=== PATIENT | female | born 1965 | race Caucasian/White ===

== ENCOUNTER → 2016-07-17 | Outpatient (CLI) | payer BC ==
[~2016-07-17] MED LIST: ETONMIS VAGRING; MULT-506 PO
--- NOTE | 2016-07-17 12:46 | MAMMOGRAPHY REPORT ---
UNILATERAL RIGHT DIGITAL DIAGNOSTIC MAMMOGRAM TOMOSYNTHESIS WITH CAD AND TARGETED RIGHT ULTRASOUND: 07/17/2016 CLINICAL HISTORY: Six-month follow-up of right breast asymmetry. TECHNIQUE: Breast tomosynthesis in addition to standard 2D mammography was performed. Current study was also evaluated with a Computer Aided Detection (CAD) system. Right CC and MLO 2-D and tomosynt hesis images were obtained. COMPARISON: Comparison is made to exams dated: 01/17/2016 ultrasound, 01/17/2016 mammogram, 01/11/20 16 mammogram, 01/05/2015 mammogram, 07/22/2013 mammogram, and 07/16/2012 mammogram - [facility]. BREAST COMPOSITION: The tissue of the right breast is heterogeneously dense, which may obscure smal l masses. FINDINGS: The previously described asymmetry seen within the right superior breast appears similar to prior exams and has the appearance of normal fibroglandular tissue on the tomosynthesis images. Findings are benign and compatible with normal fibroglandular tissue. Incidentally noted in the rig ht upper outer quadrant, best seen on the tomosynthesis images, is a lobulated oval 9 mm mass which was not clearly evident on prior exams. The remainder of the right breast is stable compared to yvan or exams, without suspicious masses, calcifications, or areas of architectural distortion noted. Targeted ultrasound was performed of the right upper outer quadrant in the region of the mammographi c mass. In the right breast at 10:00, 2 cm from the nipple, there is an oval anechoic circumscribed mass with a thin internal septation, measuring 4 x 4 x 2 mm, consistent with a benign cyst cluster. In the right breast at 10:00, 2 cm from the nipple, there is an oval circumscribed 9 x 4 x 7 mm ma ss, which is predominately anechoic and does contain a thin internal septation. However, there is a focal isoechoic region which could represent proteinaceous debris versus a solid component. This l ikely corresponds with the mammographic mass and is indeterminant. Recommend ultrasound guided core needle biopsy for further evaluation. In the right breast at 9:00, 3 cm from the nipple, there is an oval anechoic circumscribed 4 x 3 mm mass, consistent with a benign simple cyst. IMPRESSION: ACR BI-RADS CATEGORY 4A: LOW SUSPICION FOR MALIGNANCY, TARGETED ULTRASOUND ACR BI-RADS CATEGORY 4A: LOW SUSPICION FOR MALIGNANCY 1. The previously described right superior breast asymmetry is benign and compatible with normal fi broglandular tissue. 2. Incidental 9 mm mass in the right breast at 10:00, which may represent a complicated cyst althou gh a mixed cystic and solid mass is not excluded. Recommend ultrasound guided core needle biopsy fo r further evaluation. A phone call was made to the physician's office to confirm faxed results were received. The patient has been verbally notified of the results. She tentatively scheduled the biopsy before leaving the department. Approximately 10% of breast cancers are not detected with mammography. A negative mammographic repor t should not delay biopsy if a clinically suggestive mass is present. Antonietta Huertas M.D. ah/:07/17/2016 08:37:55 Communications Advisor: Tj Black RT(R)(M), [facility] letter sent: Abnormal 4/5 BI-RADS Code: ACR BI-RADS Category 4A: Low Suspicion For Malignancy Ultrasound BI-RADS: ACR BI-RADS Category 4A: Low Suspicion For Malignancy
== END | disposition home or self-care (01) ==
LOC: C.MAMM 07:55
PROVIDERS: ATTEND Obstetrics & Gynecology
DX: N64.89 Other specified disorders of breast (principal); N63 Unspecified lump in breast

== ENCOUNTER → 2016-07-22 | Outpatient (CLI) | payer BC ==
--- NOTE | 2016-07-22 13:21 | Discharge Instructions ---
Discharge Instructions Procedure Procedure Date: Jul 22, 2016. Reason for visit: Right Mass. Discharge Discharge Date: Jul 22, 2016. Discharge Diagnosis: post right breast ultrasound guided core biopsy Medications Restart Stopped Medication(s): May restart Aspirin tonight Instructions Activity Recommendations: Additional Limitations (see below) Return to School/Work: no limitations Recommended Home Diet: No Limitations Provider Instructions: ACTIVITY RECOMMENDATIONS: * No lifting, pushing, pulling or exercising the affected side for three days. RETURN TO SCHOOL/WORK: * You may return to work/school after the procedure, but do not perform any strenuous activities for 24 to 48 hours. MEDICATIONS: * Tylenol (two 325 mg) every four to six hours if needed for mild pain (if not allergic to Tylenol). DIET: * Resume previous diet. SPECIAL CARE INSTRUCTIONS: * Keep biopsy site dry for 24 hours. May shower after 24 hours, but do not soak (bathe) incision. * May remove Tegaderm (plastic patch) tomorrow AFTER showering. * Leave the steri-strips on for one week. Allow the steri-strips to fall off by themselves. If not off after one week, you may remove them. You may place a Bandaid crosswise over the strips, if desired. * Apply ice 10 minutes on and 10 minutes off as needed. * Wear a bra at bedtime to sleep more comfortably for 2-3 days. * Your referring physician should have the results after approximately 5 to 7 business days. * Call for unusual bleeding, fever, drainage, etc or if you have any questions call [phone] during normal business hours or after hours call Dr Beach, . FOLLOW UP VISIT: Follow-up with Referring Physician as scheduled. Allergies Coded Allergies: Penicillins (Verified Allergy, Unknown, SOB AND THROAT EDEMA, 12/19/11) Azithromycin (Unverified Allergy, DIFF BREATHING, 05/12/09) Ronny Bazzi Recommendations: Call your doctor if: * Temperature above 101 degrees * Pain not relieved by pain medicine ordered * There is increased drainage or redness from any incision * You have any unanswered questions or concerns. Your Doctors Instructions noted above were prepared by provider Vivian Beach. Patient Signature Section: Patient Instructions Signature Page Leola Rice Patient (or Guardian) Signature/Date: I have read and understand the instructions given to me by my caregivers. Caregiver/RN/Doctor Signature/Date: The above-named patient and/or guardian has received patient instructions on this date. + Original Patient Signature Page (only) stays with chart. Please make copy for patient.
--- NOTE | 2016-07-22 15:14 | MAMMOGRAPHY REPORT ---
ULTRASOUND GUIDED BIOPSY RIGHT BREAST: 07/22/2016 CLINICAL HISTORY: Indeterminate mixed solid and cystic mass versus intracystic mass in the 10:00 rig ht breast. Patient presented for ultrasound-guided core needle biopsy. COMPARISON: Comparison is made to exams dated: 07/17/2016 mammogram, 07/17/2016 ultrasound, 6 ultrasound, 01/17/2016 mammogram, 01/11/2016 mammogram, and 01/05/2015 mammogram - [facility]. PATIENT CONSENT: The procedure, risks and benefits were discussed with the patient and informed writ ten consent was obtained. Specific risks to this procedure include: bleeding, infection, puncture of adjacent structure, nontarget biopsy, middle allergy, sampling error and medication reaction. PROCEDURE DESCRIPTION: A time out was performed and the right breast was agreed as the site of biops y. The skin was prepped and draped in the usual sterile fashion. The mixed solid and cystic versus i ntracystic mass in the 10:00 right breast was chosen as the target for biopsy. Subcutaneous and intr aparenchymal 1% buffered lidocaine was administered as local anesthesia. A skin incision was made. Through the incision, 5 samples were taken with a 14 gauge Achieve biopsy device. The cystic compon ent of the mass decreased in size after sampling. A metallic marker was placed at the biopsy site. Hemostasis was achieved after manual compression. The patient tolerated the procedure well and there was no immediate complication. The samples were sent to pathology in appropriately labeled contain er. Postprocedure right CC and ML tomosynthesis images were obtained. Based on the CC view, the metalli c biopsy marker aligns with a nodular asymmetry seen mammographically. On the MLO view the biopsy m arker is slightly inferior to the original asymmetry seen on the 01/11/2016 mammogram. No significa nt postbiopsy hematoma is identified. COMPARISON: Comparison is made to exams dated: 07/17/2016 mammogram, 07/17/2016 ultrasound, 6 ultrasound, 01/17/2016 mammogram, 01/11/2016 mammogram, and 01/05/2015 mammogram - [facility]. An ultrasound guided biopsy using real-time ultrasound was performed for the abnormality located in the right breast at 10 o'clock middle depth. The skin was prepped in the usual manner. A biopsy ne edle was placed adjacent to the abnormality under ultrasound guidance. Once the needle was document ed to be in the correct location, a specimen was obtained using an automated biopsy gun. The specim en was sent to the laboratory for pathological analysis. IMPRESSION: ULTRASOUND GUIDED BIOPSY Status post ultrasound guided core needle biopsy of an indeterminate solid and cystic versus intracy stic mass in the 10:00 right breast, with biopsy marker placed at the site. The patient will receive notification of the biopsy results from her referring physician. Vivian Beach M.D. ay/:07/22/2016 14:54:00 Voice Professor: Zulma Patel, [facility]
--- NOTE | 2016-07-22 15:17 | MAMMOGRAPHY REPORT ---
UNILATERAL RIGHT DIGITAL DIAGNOSTIC MAMMOGRAM TOMOSYNTHESIS: 07/22/2016 CLINICAL HISTORY: Status post ultrasound-guided core needle biopsy of an indeterminate solid and cys tic mass in the 10:00 right breast. Please refer to the report from right breast ultrasound guided core biopsy performed at the same nico e for full detail. IMPRESSION: POST PROCEDURE IMAGING FOR MARKER PLACEMENT Please refer to the report from right breast ultrasound guided core biopsy performed at the same nico e for full detail. Approximately 10% of breast cancers are not detected with mammography. A negative mammographic repor t should not delay biopsy if a clinically suggestive mass is present. Vivian Beach M.D. ay/:07/22/2016 13:40:40 Manufacturing Engineer Automotive: Zulma Patel, [facility] BI-RADS Code: Post Procedure Imaging For Marker Placement
== END | disposition home or self-care (01) ==
LOC: C.MAMM 12:17
PROVIDERS: ATTEND Obstetrics & Gynecology
DX: N63 Unspecified lump in breast (principal); N60.11 Diffuse cystic mastopathy of right breast

== ENCOUNTER → 2017-01-14 | Outpatient (CLI) | payer BC ==
--- NOTE | 2017-01-14 14:23 | MAMMOGRAPHY REPORT ---
BILATERAL DIGITAL SCREENING MAMMOGRAM TOMOSYNTHESIS WITH CAD: 01/14/2017 CLINICAL HISTORY: Routine screening. Patient has no complaints. TECHNIQUE: Breast tomosynthesis in addition to standard 2D mammography was performed. Current study was also evaluated with a Computer Aided Detection (CAD) system. COMPARISON: Comparison is made to exams dated: 07/22/2016 mammogram, 07/22/2016 ultrasound biopsy, 07/06 mammogram, 07/17/2016 ultrasound, 01/17/2016 mammogram, and 01/11/2016 mammogram - [facility]. BREAST COMPOSITION: The tissue of both breasts is heterogeneously dense, which may obscure small mas ses. FINDINGS: There is a stable ribbon-shaped biopsy marker clip in the upper outer quadrant of the right breast. No new suspicious mass, architectural distortion or cluster of microcalcifications is seen. IMPRESSION: ACR BI-RADS CATEGORY 1: NEGATIVE There is no mammographic evidence of malignancy. A 1 year screening mammogram is recommended. The pa tient will receive written notification of the results. Approximately 10% of breast cancers are not detected with mammography. A negative mammographic report should not delay biopsy if a clinically suggestive mass is present. Vivian Beach M.D. ay/:01/14/2017 08:30:17 Traffic Control Technician: Zulma Patel, [facility] letter sent: Normal 1/2 BI-RADS Code: ACR BI-RADS Category 1: Negative
== END | disposition home or self-care (01) ==
LOC: C.MAMM 07:10
PROVIDERS: ATTEND Obstetrics & Gynecology
DX: Z12.31 Encounter for screening mammogram for malignant neoplasm of breast (principal)

== ENCOUNTER → 2017-04-22 | Outpatient (CLI) | payer OTHER | END | disposition home or self-care (01) | LOC: C.PAPS 11:11 | PROVIDERS: ATTEND Obstetrics & Gynecology | DX: R87.612 Low grade squamous intraepithelial lesion on cytologic smear of cervix (LGSIL) (principal); Z97.5 Presence of (intrauterine) contraceptive device ==

== ENCOUNTER 2018-05-01 07:05 | Observation (INO) ==
--- NOTE | 2018-05-01 07:18 | CT Scan Report ---
CT head/brain wo con CLINICAL HISTORY: Change in neurological status. Possible acute stroke. COMPARISON STUDY: 11/02/2008 TECHNIQUE: Axial CT of the brain is performed from the vertex to the skull base. IV contrast was not administered for this examination. A dose lowering technique was utilized adhering to the principles of ALARA. CT DOSE: 537.48 mGy.cm FINDINGS: No intra or extra-axial mass lesions are visualized. There is no CT evidence of acute cortical infarc tion. There is no evidence of midline shift. There is no acute hemorrhage. No calvarial fractures ar e visualized. There is no evidence of pathologic ventricular dilatation. There is no evidence of acute sinusitis IMPRESSION: No acute intracranial findings Electronically signed by: Charli Reyes M.D. 05/01/2018 7:17 AM
[2018-05-01 07:31] LABS: Basophils # (auto) 0.05 K/uL (0-0.2); Basophils % (auto) 0.8 %; Eosinophils # (auto) 0.19 K/uL (0-0.5); Eosinophils % (auto) 2.9 %; Hematocrit (blood only) 47.3 % (37-47); Hemoglobin 16.4 g/dL (12.0-16.0); Immature Granulocytes # (auto) 0.01 K/uL (0.00-0.02); Immature Granulocytes % (auto) 0.2 %; Lymphocytes # (auto) 2.01 K/uL (1.2-3.4); Mean Corpuscular Hgb Conc 34.7 g/dL (32-36); Mean Corpuscular Volume 88.2 fL (80-100); Mean Platelet Volume 9.6 fL (7.4-10.4); Monocytes # (auto) 0.52 K/uL (0.11-0.59); Neutrophils % (auto) 57.1 %; Platelet Count 285 K/uL (130-400); RDW Coefficient of Variation 12.7 % (11.5-14.5); RDW Standard Deviation 40.9 fL (36.4-46.3); Red Blood Count 5.36 M/uL (4.2-5.4); White Blood Count 6.48 K/uL (4.8-10.8)
--- NOTE | 2018-05-01 07:41 | XRay Report ---
XR chest 1V portable CLINICAL HISTORY: weakness COMPARISON STUDY: Chest CT dated 03/27/2012 FINDINGS: The cardiac and mediastinal contours are normal. There is no evidence of focal pulmonary co nsolidation. There is no evidence of failure. No pleural effusions are visualized.[ IMPRESSION: No active disease in the chest. Electronically signed by: Charli Reyes M.D. 05/01/2018 7:40 AM
[2018-05-01 07:47] LABS: Albumin Level 3.5 gm/dl (3.4-5.0); BUN Creatinine Ratio 25.2 (10-20); Calcium 8.4 mg/dl (8.5-10.1); Creatinine Clr Calc Pharmacy 63.1 ml/min; Est GFR (African American) 84.6; Potassium 3.7 mmol/L (3.5-5.1)
[2018-05-01 07:58] LABS: Albumin Globulin Ratio 0.9 (0.9-2); Bilirubin,Total 0.4 mg/dl (0.2-1); Globulin 3.8 gm/dl (2.5-4.0); Total Protein 7.3 gm/dl (6.4-8.2)
--- NOTE | 2018-05-01 08:36 | Emergency Department Note ---
Entered by Rochelle Oleary acting as a scribe for History of Present Illness General Chief complaint: Confusion Stated complaint: DISORIENTATION Time Seen by Provider: 05/01/18 07:10 Source: patient Mode of arrival: ambulatory Limitations: no limitations History of Present Illness Provider complaint: altered mental status Onset (ago): hour(s) (1) Location: head Pain Consistency: + other (episode) Quality: + other (altered mental status) Associated symptoms: + other (Associated symptoms: confusion. Denies: slurred speech, difficulty walking, differences in facial features, recent illness, cold , cough, chest pain, trouble breathing, abdominal pain. ) The patient is a 52 year old woman who presents to the Emergency Room with complaints of an episode of altered mental status beginning about 1 hour ago. She reports I am confused and is unsure how long she has been confused. Her reports he saw the patient 1 hour ago standing and staring at the kitchen cabinet. The patient states she does not remember staring at the cabinet and does not remember her driving her to the ED. The denies any slurred speech, difficulty walking, or differences in her facial features. The patient denies recent illness, cold, cough, chest pain, trouble breathing, or abdominal pain. Home Medications Home Medications Medication Instructions Recorded Confirmed Type duloxetine 20 mg PO BID 05/01/18 05/01/18 History etonogestrel-ethinyl estradiol 1 dose VAGINAL DAILY 05/01/18 05/01/18 History [NuvaRing] lisdexamfetamine [Vyvanse] 20 mg PO QAM 05/01/18 05/01/18 History multivitamin 1 cap PO DAILY 05/01/18 05/01/18 History Allergies Allergy/AdvReac Type Severity Reaction Status Date / Time mivacurium Allergy Unknown DIFF Unverified 05/01/18 08:26 BREATHING Penicillins Allergy Unknown SOB AND Verified 05/01/18 08:26 THROAT EDEMA Past Med/Surg History Medical History Migraine (Chronic) Social History Feels Safe at Home: Yes Smoking Status: Never smoker Review of Systems See HPI for pertinent positives & negatives. and A total of 10 systems reviewed and were otherwise negative Physical Exam Vital Signs Vital Signs - 24 hr 05/01/18 07:16 05/01/18 07:49 05/01/18 09:00 Temperature 36.2 C L Temperature Source Oral Sepsis Recent Fever Within 48 Hours No Sepsis New/Unexplained Change in Mental Status No Sepsis Action Taken by Nursing No Action Required Pulse Rate 114 H 99 H Pulse Rate [Right Finger] 99 H 106 H Pulse Rhythm Regular Pulse Rhythm [Right Finger] Regular Pulse Strength [Right Finger] Normal Respiratory Rate 16 16 16 Respiratory Effort / Characteristics Non-Labored Respiratory Depth Normal Respiratory Pattern Regular Blood Pressure 158/84 H Blood Pressure [Right Arm] 134/108 H 152/95 H Blood Pressure Mean 108 Blood Pressure Mean [Right Arm] 116 114 Blood Pressure Position [Right Arm] Sitting Pulse Oximetry 99 96 Oxygen Delivery Method Room Air Room Air 05/01/18 09:33 Temperature Temperature Source Sepsis Recent Fever Within 48 Hours Sepsis New/Unexplained Change in Mental Status Sepsis Action Taken by Nursing Pulse Rate Pulse Rate [Right Finger] 96 H Pulse Rhythm Pulse Rhythm [Right Finger] Regular Pulse Strength [Right Finger] Normal Respiratory Rate 16 Respiratory Effort / Characteristics Non-Labored Respiratory Depth Normal Respiratory Pattern Regular Blood Pressure Blood Pressure [Right Arm] 164/108 H Blood Pressure Mean Blood Pressure Mean [Right Arm] 126 Blood Pressure Position [Right Arm] Sitting Pulse Oximetry 96 Oxygen Delivery Method Room Air VITAL SIGNS: were reviewed as above. GENERAL:Non-toxic in appearance. SKIN: Warm dry and pink. HEAD: Normocephalic and atraumatic. OROPHARYNX: Is clear and moist NECK: Supple without lymphadenopathy or meningismus. LUNGS: clear. HEART: Regular rate and rhythm. ABDOMEN: Soft and nontender. EXTREMITIES: Warm and well perfused. NEUROLOGICALLY: Awake alert and oriented without focal deficit. Cranial nerves 2 -12 are intact. There is no pronator drift. Cerebellar testing is within normal limits. There is no nystagmus. There is no facial droop. Speech is clear. Vision is grossly normal. MUSCULOSKELETAL: Good muscle tone. No evidence of trauma. Course 0718: Past medical records reviewed. The patient was evaluated in room B1, and a complete history and physical examination were performed. 727: I reviewed the case with Dr. Ziegler, [place] [facility]. She recommends a work-up of the patient. 0730: I reevaluated the patient. 0832: Upon reevaluation, the patient is in MRI. 0941: Upon reevaluation, the patient is restinf. I discussed test results. They verbalized agreement with the treatment plan. 0947: I reviewed the patient's case with a PA-C from [facility] hospitalist service. They will evaluate the patient for further management. Consultations Consultation #1: I reviewed the case with Dr. Ziegler, [place] [facility]. She recommends a work-up of the patient. Time: 07:28 Consultation #2: I reviewed the patient's case with a PA-C from [facility] hospitalist service. They will evaluate the patient for further management. Time: 09:47 Administered Medications Discontinued Medications Ondansetron HCl (Zofran) Confirm Administered Dose 4 mg .ROUTE .STK-MED ONE Stop: 05/01/18 09:38 Last Admin: 05/01/18 09:38 Dose: 4 mg Medical Decision Making Differential Diagnosis Differential includes acute coronary syndrome, myocardial infarction, CVA, TIA , anemia, infection, pneumonia, UTI, pyelonephritis, poor nutrition, dehydration , electrolyte disturbance,hypoglycemia. Medical Records Attestation: I reviewed the patient's medical records. Home Medications Current Medication List: was personally reviewed by me Laboratory Data Attestation: I reviewed the patient's lab results. Result diagrams: 05/01/18 07:22 05/01/18 07:22 Lab Results 05/01/18 05/01/18 05/01/18 Range/Units 07:22 07:22 07:22 WBC 6.48 (4.8-10.8) K/uL RBC 5.36 (4.2-5.4) M/uL Hgb 16.4 H (12.0-16.0) g/dL Hct 47.3 H (37-47) % MCV 88.2 (80-100) fL MCH 30.6 (25-34) pg MCHC 34.7 (32-36) g/dL RDW Std Deviation 40.9 (36.4-46.3) fL RDW Coeff of [place] 12.7 (11.5-14.5) % Plt Count 285 (130-400) K/uL MPV 9.6 (7.4-10.4) fL Immature Gran % (Auto) 0.2 % Neut % (Auto) 57.1 % Lymph % (Auto) 31.0 % Williams % (Auto) 8.0 % Eos % (Auto) 2.9 % Baso % (Auto) 0.8 % Immature Gran # (Auto) 0.01 (0.00-0.02) K/uL Neut # (Auto) 3.70 (1.4-6.5) K/uL Lymph # (Auto) 2.01 (1.2-3.4) K/uL Williams # (Auto) 0.52 (0.11-0.59) K/uL Eos # (Auto) 0.19 (0-0.5) K/uL Baso # (Auto) 0.05 (0-0.2) K/uL Sodium 137 (136-145) mmol/L Potassium 3.7 (3.5-5.1) mmol/L Chloride 103 (98-107) mmol/L Carbon Dioxide 24 (21-32) mmol/L Anion Gap 10.0 (3-11) BUN 23 H (7-18) mg/dl Creatinine 0.90 (0.6-1.2) mg/dl Est Cr Clr Drug Dosing 63.1 ml/min Est GFR ( Amer) 84.6 Est GFR (Non-Af Amer) 73.0 BUN/Creatinine Ratio 25.2 H (10-20) Glucose 116 H (70-99) mg/dl POC Glucose 116 H (70-99) Calcium 8.4 L (8.5-10.1) mg/dl Total Bilirubin 0.4 (0.2-1) mg/dl AST 17 (15-37) U/L ALT 17 (12-78) U/L Alkaline Phosphatase 82 (45-117) U/L Total Protein 7.3 (6.4-8.2) gm/dl Albumin 3.5 (3.4-5.0) gm/dl Globulin 3.8 (2.5-4.0) gm/dl Albumin/Globulin Ratio 0.9 (0.9-2) TSH 2.100 (0.300-4.500) uIu/ml Imaging Data Radiologist's Impression: Radiology results as stated below per my review and the radiologist's interpretation: XR chest 1V portable CLINICAL HISTORY: weakness COMPARISON STUDY: Chest CT dated 03/27/2012 FINDINGS: The cardiac and mediastinal contours are normal. There is no evidence of focal pulmonary consolidation. There is no evidence of failure. No pleural effusions are visualized.[ IMPRESSION: No active disease in the chest. Electronically signed by: Charli Reyes M.D. 05/01/2018 7:[address] head/brain wo con CLINICAL HISTORY: Change in neurological status. Possible acute stroke. COMPARISON STUDY: 11/02/2008 TECHNIQUE: Axial CT of the brain is performed from the vertex to the skull base. IV contrast was not administered for this examination. A dose lowering technique was utilized adhering to the principles of ALARA. CT DOSE: 537.48 mGy.cm FINDINGS: No intra or extra-axial mass lesions are visualized. There is no CT evidence of acute cortical infarction. There is no evidence of midline shift. There is no acute hemorrhage. No calvarial fractures are visualized. There is no evidence of pathologic ventricular dilatation. There is no evidence of acute sinusitis IMPRESSION: No acute intracranial findings Electronically signed by: Charli Reyes M.D. 05/01/2018 7:17 AM MRI OF THE BRAIN WITHOUT IV CONTRAST CLINICAL HISTORY: Change in mental status. COMPARISON STUDY: CT of the brain dated 05/01/2018. MRI of the brain dated 2008. TECHNIQUE: MRI of the brain was performed utilizing various T1 and T2-weighted sequences in the axial, sagittal, and coronal planes. IV contrast was not administered for this examination. FINDINGS: Brain parenchyma: There are scattered tiny foci of microangiopathic change. The brain parenchyma is otherwise normal in appearance. There is no hemorrhage or mass effect. There is no restricted diffusion to suggest acute ischemia. Santamaria- white matter differentiation is preserved. No extra-axial fluid collection is seen. The cerebellar tonsils are normal in configuration. Ventricles, sulci, and cisterns: Normal in configuration. Pituitary and sella: Unremarkable. Intracranial vasculature: Normal flow voids are maintained at the skull base. Orbits: The bony orbits are grossly intact. Orbital contents are normal in appearance. Sinuses and mastoids: There is trace mucosal thickening in the right maxillary antrum. The remaining paranasal sinuses are clear, as are the mastoid air cells. Calvarium: Unremarkable. Cervical cord: Partially visualized cervical spinal cord is normal in morphology and signal intensity. IMPRESSION: No acute intracranial abnormality. Electronically signed by: Neymar Sommers M.D. 05/01/2018 8:44 AM ECG Data Attestation: I personally reviewed and interpreted this ECG as follows: Indication: altered mental status Rate (beats per minute): 98 Rhythm: normal sinus Findings: no PAC, no PVC and no ST elevation Blood Pressure Blood Pressure Findings: Elevated blood pressure Blood Pressure Disposition: further management by hospitalist RJ Narrative This is a 52-year-old female who presents to the ED with a chief complaint of confusion. The patient awoke this morning before her was getting ready for work. When he found her in the kitchen, she was staring at the cabinets. She was speaking okay but just not acting herself. She seemed to be in a days. The patient was brought to the emergency department by private vehicle for evaluation. The patient states that she cannot remember anything about this morning. She does not remember how she got here. She states that she just feels confused. She answers all questions appropriately. She has no focal neurologic deficits on exam. Her exam was otherwise unremarkable. She denies any recent illness. Denies any chest pains, abdominal pains, headaches, focal weakness, urinary symptoms, vomiting or diarrhea or any other symptoms. She states that she is otherwise been well. Has been does not add any additional information. The patient has no sentiment past medical history. She does have a history of migraines. She is not a smoker. She takes no medications. Her vital signs are stable. A CT scan of the brain did not show acute process. An EKG shows a normal sinus rhythm at a rate of 90 CBC is normal. BUN is 23 and glucose was 116. TSH was normal. Chest x-ray did not show acute process. A stroke alert was called upon the patient's arrival. I spoke with Elyssa Sapp neurologist, who did not feel the patient requires tele-stroke evaluation at this time as she does not appear to need thrombolytics. Brain MRI did not show acute process. The patient did have one episode of nausea and vomited in the ED. She was given Zofran IV for this. I spoke with the hospitalist, who will see the patient for further inpatient evaluation and care. Impression & Plan Confusion Discharge Plan Visit Data Chief Complaint: Confusion Stated Complaint: DISORIENTATION ED Provider: Gideon Tobar Discharge Problem: Confusion Patient Disposition: Being Evaluated by Hospitalist Forms Stand Alone Forms: My [facility] [place] [employer] Prescriptions Prescriptions: No Action multivitamin Capsule 1 cap PO DAILY RF: 0 etonogestrel-ethinyl estradiol [NuvaRing] 0.12-0.015 mg/24 hr ring 1 dose Vaginal DAILY RF: 0 duloxetine 20 mg capsule,delayed release(DR/EC) 20 mg PO BID RF: 0 lisdexamfetamine [Vyvanse] 20 mg capsule 20 mg PO QAM RF: 0 Referrals Referrals: PCP,NO [Primary Care Provider] - The scribe's documentation has been prepared under my direction and personally reviewed by me in its entirety. I confirm that the note above accurately reflects all work, treatment, procedures, and medical decision making performed by me.
--- NOTE | 2018-05-01 08:45 | Magnetic Resonance Report ---
MRI OF THE BRAIN WITHOUT IV CONTRAST CLINICAL HISTORY: Change in mental status. COMPARISON STUDY: CT of the brain dated 05/01/2018. MRI of the brain dated 11/01/2008. TECHNIQUE: MRI of the brain was performed utilizing various T1 and T2-weighted sequences in the axial , sagittal, and coronal planes. IV contrast was not administered for this examination. FINDINGS: Brain parenchyma: There are scattered tiny foci of microangiopathic change. The brain parenchyma is o therwise normal in appearance. There is no hemorrhage or mass effect. There is no restricted diffusio n to suggest acute ischemia. Santamaria-white matter differentiation is preserved. No extra-axial fluid col lection is seen. The cerebellar tonsils are normal in configuration. Ventricles, sulci, and cisterns: Normal in configuration. Pituitary and sella: Unremarkable. Intracranial vasculature: Normal flow voids are maintained at the skull base. Orbits: The bony orbits are grossly intact. Orbital contents are normal in appearance. Sinuses and mastoids: There is trace mucosal thickening in the right maxillary antrum. The remaining paranasal sinuses are clear, as are the mastoid air cells. Calvarium: Unremarkable. Cervical cord: Partially visualized cervical spinal cord is normal in morphology and signal intensity . IMPRESSION: No acute intracranial abnormality. Electronically signed by: Neymar Sommers M.D. 05/01/2018 8:44 AM
[2018-05-01] MEDS ORDERED: ONDANSETRON INJ 2 MG/ML 2 ML VIAL ONE (09:37)
--- NOTE | 2018-05-01 10:26 | History & Physical Report ---
Date of Service May 01, 2018 Assessment & Plan (1) Acute encephalopathy: - Presented with acute confusion; may be related to transient global amnesia vs. hypertensive encephalopathy vs. TIA/CVA vs. infection. - MRI brain w/o contrast and CT head without contrast in ER were negative. - CXR negative for infection; U/a and urine drug screen are pending. - Will initiate stroke protocol orders, admit to PCU/tele for cardiac monitoring. - Consult neurology. - PT/OT & Speech therapy consulted. - TTE & MRA of head/neck ordered. - Regular diet as pt. is alert, can tolerate diet; no IVFs indicated. - Lipid panel and Hemoglobin A1C ordered in AM. (2) Hypertension: - No documented h/o HTN in past; has been hypertensive with SBP 160 - 190' s in ER. - Continue to monitor -- will hold prn anti-hypertensive agents. - Concern for hypertensive encephalopathy as noted above. (3) History of migraine: - No evidence of acute migraine. (4) Anxiety and depression: - Currently on Duloxetine (confirmed on Ext med history) but no longer on Vyvanse as per daughter - Low threshold to consider psych consult. (5) control: - Continue Nuvaring as prescribed. (6) DVT prophylaxis: - Bilat SCDs and Lovenox 40 mg subQ daily. Dispo: Admit to PCU/tele for stroke work up/neuro consult. History of Present Illness Chief Complaint: Confusion Primary Care Provider: [facility] [address] Elyssa Mrs. Rice is a 52 y/o female with history of anxiety/depression who presented to the ED with confusion. History was obtained from her who was present at bedside. He states patient was staring "blankly" into the kitchen cabinets this morning when he found her downstairs around 6 am. She does not remember anything this morning and repeats questions frequently, including "Where am I?". Prior to episode this morning, she denies chest pain, SOB, headache, visual changes, LE edema or pain at home. Denies nausea or vomiting, diarrhea or constipation, abdominal pain, dysuria or urinary retention. Pt. has previously taken anti-depressants but does not take any treatment currently. She uses the Nuva-ring at home but denies other medications ; her family confirmed that she does not take other medications. Denies recent illnesses or sick contacts prior to admission. Work up in the ED, including CT head, brain MRI and CXR, were all negative. U/a and urine drug screen is pending. Will admit to observation status for further evaluation and neurology consult. Allergies Allergy/AdvReac Type Severity Reaction Status Date / Time mivacurium Allergy Unknown DIFF Unverified 05/01/18 08:26 BREATHING Penicillins Allergy Unknown SOB AND Verified 05/01/18 08:26 THROAT EDEMA Home Medications Home Medications Medication Instructions Recorded Confirmed Type duloxetine 20 mg PO BID 05/01/18 05/01/18 History etonogestrel-ethinyl estradiol 1 dose VAGINAL DAILY 05/01/18 05/01/18 History [NuvaRing] multivitamin 1 cap PO DAILY 05/01/18 05/01/18 History Past Med/Surg History Medical History Anxiety and depression Migraine TMJ (temporomandibular joint disorder) Surgical History No pertinent past surgical history Family History Mother CLL (chronic lymphocytic leukemia) Father Hypertension Social History Current Living Situation: Spouse current occupational status: employed Feels Safe at Home: Yes Smoking Status: Never smoker Hx Alcohol Use: No Hx Substance Use: No Review of Systems Other (Limited R.O.S. obtained due to mental status. ) Constitutional: no fever, no chills and no weakness Respiratory: no dyspnea Cardiovascular: no chest pain and no edema Gastrointestinal: no abdominal pain, no nausea and no constipation Genitourinary (Female): no dysuria and no difficulty urinating Musculoskeletal: no joint pain Psychiatric: + confusion; no depression and no anxiety Allergy / Immunological: no rash Physical Exam 2 Vital Signs (Past 24 Hours): Last Vital Signs Temp 36.2 C L 05/01/18 07:16 Pulse 96 H 05/01/18 09:33 Resp 16 05/01/18 09:33 BP 164/108 H 05/01/18 09:33 Pulse Ox 96 05/01/18 09:33 Physical Exam: General: Pleasant female, in no acute distress, accompanied by family at bedside. HEENT: NC/AT; Slight left sided eye droop noted; Plummer conjunctiva, MMM. Neck: Supple and nontender Cardiac: +Tachycardia Lungs: CTA bilaterally Abdomen: Bowel normoactive X 4; Nontender to palpation Rectal: Deferred : Deferred Extremities: Warm. No edema present Neuro: No focal weakness; alert to person and place. Skin: No rash Results & Data Laboratory Results 05/01/18 05/01/18 05/01/18 Range/Units 07:22 07:22 07:22 WBC 6.48 (4.8-10.8) K/uL RBC 5.36 (4.2-5.4) M/uL Hgb 16.4 H (12.0-16.0) g/dL Hct 47.3 H (37-47) % MCV 88.2 (80-100) fL MCH 30.6 (25-34) pg MCHC 34.7 (32-36) g/dL RDW Std Deviation 40.9 (36.4-46.3) fL RDW Coeff of [place] 12.7 (11.5-14.5) % Plt Count 285 (130-400) K/uL MPV 9.6 (7.4-10.4) fL Immature Gran % (Auto) 0.2 % Neut % (Auto) 57.1 % Lymph % (Auto) 31.0 % [place] % (Auto) 8.0 % Eos % (Auto) 2.9 % Baso % (Auto) 0.8 % Immature Gran # (Auto) 0.01 (0.00-0.02) K/uL Neut # (Auto) 3.70 (1.4-6.5) K/uL Lymph # (Auto) 2.01 (1.2-3.4) K/uL [place] # (Auto) 0.52 (0.11-0.59) K/uL Eos # (Auto) 0.19 (0-0.5) K/uL Baso # (Auto) 0.05 (0-0.2) K/uL Sodium 137 (136-145) mmol/L Potassium 3.7 (3.5-5.1) mmol/L Chloride 103 (98-107) mmol/L Carbon Dioxide 24 (21-32) mmol/L Anion Gap 10.0 (3-11) BUN 23 H (7-18) mg/dl Creatinine 0.90 (0.6-1.2) mg/dl Est Cr Clr Drug Dosing 63.1 ml/min Est GFR ( Amer) 84.6 Est GFR (Non-Af Amer) 73.0 BUN/Creatinine Ratio 25.2 H (10-20) Glucose 116 H (70-99) mg/dl POC Glucose 116 H (70-99) Calcium 8.4 L (8.5-10.1) mg/dl Total Bilirubin 0.4 (0.2-1) mg/dl AST 17 (15-37) U/L ALT 17 (12-78) U/L Alkaline Phosphatase 82 (45-117) U/L Total Protein 7.3 (6.4-8.2) gm/dl Albumin 3.5 (3.4-5.0) gm/dl Globulin 3.8 (2.5-4.0) gm/dl Albumin/Globulin Ratio 0.9 (0.9-2) TSH 2.100 (0.300-4.500) uIu/ml Diagnostic Findings CT head/brain wo con CLINICAL HISTORY: Change in neurological status. Possible acute stroke. COMPARISON STUDY: 11/02/2008 TECHNIQUE: Axial CT of the brain is performed from the vertex to the skull base. IV contrast was not administered for this examination. A dose lowering technique was utilized adhering to the principles of ALARA. CT DOSE: 537.48 mGy.cm FINDINGS: No intra or extra-axial mass lesions are visualized. There is no CT evidence of acute cortical infarction. There is no evidence of midline shift. There is no acute hemorrhage. No calvarial fractures are visualized. There is no evidence of pathologic ventricular dilatation. There is no evidence of acute sinusitis IMPRESSION: No acute intracranial findings XR chest 1V portable CLINICAL HISTORY: weakness COMPARISON STUDY: Chest CT dated 03/27/2012 FINDINGS: The cardiac and mediastinal contours are normal. There is no evidence of focal pulmonary consolidation. There is no evidence of failure. No pleural effusions are visualized.[ IMPRESSION: No active disease in the chest. MRI OF THE BRAIN WITHOUT IV CONTRAST CLINICAL HISTORY: Change in mental status. COMPARISON STUDY: CT of the brain dated 05/01/2018. MRI of the brain dated 2008. TECHNIQUE: MRI of the brain was performed utilizing various T1 and T2-weighted sequences in the axial, sagittal, and coronal planes. IV contrast was not administered for this examination. FINDINGS: Brain parenchyma: There are scattered tiny foci of microangiopathic change. The brain parenchyma is otherwise normal in appearance. There is no hemorrhage or mass effect. There is no restricted diffusion to suggest acute ischemia. Santamaria- white matter differentiation is preserved. No extra-axial fluid collection is seen. The cerebellar tonsils are normal in configuration. Ventricles, sulci, and cisterns: Normal in configuration. Pituitary and sella: Unremarkable. Intracranial vasculature: Normal flow voids are maintained at the skull base. Orbits: The bony orbits are grossly intact. Orbital contents are normal in appearance. Sinuses and mastoids: There is trace mucosal thickening in the right maxillary antrum. The remaining paranasal sinuses are clear, as are the mastoid air cells. Calvarium: Unremarkable. Cervical cord: Partially visualized cervical spinal cord is normal in morphology and signal intensity. IMPRESSION: No acute intracranial abnormality. ECG Additional Comments: ECG with normal sinus rhythm, rate 98, subtle half millimeter ST depression in lateral leads, short [place] interval at 120 Code Status & VTE Plan Code Status FULL CODE VTE Prophylaxis Plan VTE Prophylaxis will be ordered: Yes Supervising Physician Co-Signing Physician Notes PITA Supervision Note: I personally saw and examined the patient. I verified all sutton points and agree with PITA Jean with the following exceptions and/or additions: Patient is a 52-year-old female who presents with acute onset this morning of amnesia that is persisting. She has no recent head injury that the family or the patient are aware of, no weakness, numbness, tingling, speech issues, or facial droop is noted by the family. Has been reports that last night before bed, everything was perfectly normal. 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 The patient does not recall going to work this week and cannot tell me the last thing she remembers. She does not recall coming to the ER and persistently asks "why am I here?" She denies headache or visual changes, denies numbness or tingling or weakness, denies chest pain or shortness of breath, denies recent fevers or cough/cold or illness, denies abdominal pain/constipation/diarrhea, no joint pains or rashes, no urinary symptoms. She denies recent travel. She has never had anything like this before. She is quite tearful and frustrated it seems and confused as to why she is in the hospital. As for her migraines, she reports she is to have them 2 times per week but since being on the NuvaRing continuously, she now only gets migraines once per month and is able to recall that she used to take Imitrex but now takes "something else" which is confirmed in her outpatient record as Maxalt. History and review of systems otherwise as above Vitals reviewed-quite hypertensive Gen: [AAOx3, NAD] HEENT: [anicteric sclerae, EOMI, left pupil slightly oblong in the diagonal plane but equally reactive and same size as right pupil-no noted history of eye surgery] CV: [RRR no mgr nl S1S2] Pulm: [CTAB no wcr] Abd: [+BS soft NT ND no masses or hernias] Ext: [no edema, 2+ DP pulses] Skin: [no rashes, warm/dry] except defaults Neuro: Cranial nerves II through XII intact, full 5 out of 5 strength throughout , sensation intact light touch throughout, DTRs 2+ and equal throughout upper and lower extremities, gait not tested, patient is oriented to year but not month or date, she knows she is in the hospital and knows her name. She is able to tell me/recognize her and his name as well as her daughter's name and her mom and dad at bedside. 52 yo female with a h/o migraines and depression/anxiety, here with amnesia and confusion. MRI brain negative for stroke. Could be hypertensive encephalopathy versus TIA versus transient global amnesia as above -Control blood pressure with as needed hydralazine-outpatient blood pressures are normally very well controlled -Continue secondary workup for stroke/TIA -if TGA, most likely will resolve by tomorrow -start ASA 81mg daily in case of TIA Discussed case with Neurology Neuro: [full strength throughout]
[2018-05-01] MEDS ORDERED: HydrALAZINE HCL 20 MG/ML VIAL IV PRN (12:27)
[2018-05-01] MEDS ORDERED: PHARMACIST DISCHARGE MED REC CONSULT PRN (12:27)
[2018-05-01 13:07] LABS: Partial Thromboplastin Time 25.8 Seconds (21.0-31.0); Prothrombin Time 9.9 Seconds (9.0-12.0)
[2018-05-01] MEDS ORDERED: ONDANSETRON INJ 2 MG/ML 2 ML VIAL IV PRN (14:28)
[2018-05-01] MEDS: ACETAMINOPHEN 325 MG TAB PO PRN ×2 (14:38→21:44)
[2018-05-01] MEDS ORDERED: GADOBUTROL 65ML VIAL IV PRN (16:08)
--- NOTE | 2018-05-01 16:29 | Magnetic Resonance Report ---
MR angio neck wo/w con CLINICAL HISTORY: 52 years-old Female presenting with clinical concern for stroke, history of migrain es, presenting with confusion. TECHNIQUE: MR angiography of the neck was performed before and after the administration of intravenou s contrast. 3-D volumetric and/or maximum intensity projection (MIP) images were subsequently reconst ructed for review. IV contrast: 6 mL of Gadavist. Stenosis measurements were based on NASCET-like cri teria. COMPARISON: None. FINDINGS: Localizer images: Unremarkable. Aortic arch: Atherosclerosis of the three-vessel aortic arch. Innominate artery: Patent. Right common carotid artery: Patent. Right internal and external carotid arteries: Right carotid bifurcation patent. Right external caroti d artery widely patent. Right internal carotid artery with focal aneurysmal dilatation in the mid cer vical portion measuring up to 7 mm in diameter (series 7 image 66). Left common carotid artery: Patent. Left internal and external carotid arteries: Left carotid bifurcation patent. Left external carotid a rtery widely patent. Diffuse irregularity and stenosis of the mid left internal carotid artery. Left subclavian artery: Patent. Vertebral arteries: Codominant vertebral arteries. Origins of the bilateral vertebral arteries patent . Apparent irregularity of the mid to distal courses of the cervical portions of the vertebral arteri es may be due to artifact or atherosclerosis. Other: Limited intracranial evaluation within normal limits. Soft tissues of the neck normal allowing for the phase of contrast. IMPRESSION: 1. Multiple vessel irregularities for which CTA Neck is recommended for confirmation. These include possible aneurysm of the mid cervical portion of the right ICA, diffuse atherosclerotic stenosis of t he mid left ICA, and questionable diffuse atherosclerotic stenoses of the mid to distal vertebral art eries. Electronically signed by: Julio C Hernandez M.D. 05/01/2018 4:28 PM
--- NOTE | 2018-05-01 16:47 | Magnetic Resonance Report ---
MR angio head wo con HISTORY: 52 years-old Female Stroke rule out acute strokelike symptoms with acute confusion COMPARISON: MRI brain of same day TECHNIQUE: MRA of the head was obtained utilizing 3-D ihen-ow-syvtte sequencing with MIP reformats. A ll measurements were obtained according to NASCET criteria. FINDINGS: Multifocal areas of luminal narrowing are seen involving the petrous portions of the bilateral internal medicine physician assistant al carotid arteries with resultant mild to moderate luminal narrowing. The middle and anterior cerebr al arteries appear patent. Anterior communicating artery is patent and appears normal. The imaged bilateral vertebral arteries appear patent. The basilar artery is also widely patent and w ithin normal limits. origin of the right posterior cerebral artery. Posterior cerebral arteries are patent and otherwise unremarkable. No aneurysm or dissection identified. IMPRESSION: 1. No aneurysm, dissection, high-grade stenosis or proximal branch occlusion. 2. Luminal narrowing about the petrous portions of the internal carotid arteries appears to be less t dillon 50% and is likely secondary to underlying atherosclerotic vascular disease. These findings could be further evaluated with a dedicated CTA study. The above report was generated using voice recognition software. It may contain grammatical, syntax o r spelling errors. Electronically signed by: Zia Mina M.D. 05/01/2018 4:46 PM
[2018-05-01 17:27] LABS: Lyme Ab IgG w/WB Rflx Negative (Negative)
[2018-05-01] MEDS ORDERED: IOVERSOL 100ml IV PRN (17:31)
[2018-05-01 17:32] LABS: Lyme Ab IgM w/WB Rflx Positive (Negative)
--- NOTE | 2018-05-01 17:44 | CT Scan Report ---
CT angio head w con CLINICAL HISTORY: 52 years-old Female presenting with Stroke. TECHNIQUE: Multidetector CT angiography of the head was performed after the administration of intrave nous contrast. 3-D volumetric and/or maximum intensity projection (MIP) images were subsequently tanner nstructed for review. IV contrast: 94 mL of Optiray 320. A dose lowering technique was used consisten t with the principles of ALARA (as low as reasonably achievable). COMPARISON: 05/01/2018. CT DOSE (mGy.cm): The estimated cumulative dose is 518.94 mGy.cm. FINDINGS: Dopster topogram: Unremarkable. Anterior circulation: Intracranial portions of the internal carotid arteries patent to the level of t he termini. Anterior cerebral arteries patent. Middle cerebral arteries patent. Anterior communicatin g artery patent. Posterior circulation: Codominant vertebral arteries. Intradural portions of the vertebral arteries p atent. Posterior inferior cerebellar arteries patent. Basilar artery patent. Anterior inferior cerebe llar arteries poorly visualized. Superior cerebellar arteries patent. Posterior cerebral arteries pat ent.Right posterior communicating artery patent. Dural venous sinuses: Patent. Other: Allowing for the phase of contrast, brain parenchyma within normal limits. Calvarium intact. IMPRESSION: 1. No evidence of aneurysm, focal vessel occlusion, or significant stenosis of the intracranial akosua ludwin. Electronically signed by: Julio C Hernandez M.D. 05/01/2018 5:43 PM
--- NOTE | 2018-05-01 17:59 | CT Scan Report ---
CT angio neck with con CLINICAL HISTORY: 52 years-old Female with Concern for stroke . Acute strokelike symptoms COMPARISON STUDY: CTA had of same day, MRA head and neck of same day TECHNIQUE: Following the IV administration of 94 of Optiray 320, CT angiogram of the neck was perform ed from the aortic arch to the skull base. Images are reviewed in the axial, sagittal, and coronal pl anes. 3-D MIPS images are created and assessed. IV contrast was administered without complication. Al l measurements were calculated based on NASCET criteria. A dose lowering technique was utilized adhe ring to the principles of ALARA. FINDINGS: The imaged pulmonary arterial tree appears unremarkable. Three-vessel morphology of aortic arch. Rodriguez ncy of the imaged bilateral subclavian arteries. The bilateral common carotid arteries are widely pat ent and unremarkable. Mild tortuosity about the bilateral internal carotid arteries. There is an ovoi d lateral saccular aneurysm about the distal cervical segment of the right internal carotid artery at the level of C1 which measures 5 x 4 x 7 mm, image 297 series 2. Multifocal areas of mild luminal na rrowing and irregularity are seen about the bilateral internal carotid arteries without high-grade st enosis, dissection or proximal branch occlusion. Mild atherosclerotic plaque formation about the prox imal left ICA causing less than 50% luminal narrowing. There is mild tortuosity noted about the bilateral vertebral arteries which appear patent. The verteb ral arteries are codominant. Tortuosity with narrowing of less than 50% involves the V2 segment right vertebral artery at the level of C2, image 265 series 2. Imaged basilar artery appears normal. No pneumothorax. Scattered calcified granulomata about the lung apices. Soft tissues and thyroid pare nchyma appear unremarkable. Bones appear to be intact. Mild mucosal thickening about the paranasal si nuses. Mild multilevel spondylitic spurring with facet arthrosis and uncovertebral spurring of the sp ine. IMPRESSION: 1. Multifocal luminal irregularity and mild narrowing involves the bilateral internal carotid arterie s. 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 2. No dissection, high-grade stenosis or proximal branch occlusion. The above report was generated using voice recognition software. It may contain grammatical, syntax o r spelling errors. Electronically signed by: Zia Mina M.D. 05/01/2018 5:57 PM
[2018-05-01 19:23] LABS: Appearance Urine Clear (Clear); Bacteria Urine Automated Negative (Negative); Bilirubin Urine Negative (Negative); Color Urine Yellow; Glucose Urine UA Negative (Negative); Ketones Urine Trace (Negative); Leukocyte Esterase Urine Negative (Negative); Nitrite Urine Negative (Negative); Protein Urine Negative (Negative); Specific Gravity Urine > 1.045 (1.000-1.030); Urobilinogen Urine Negative (Negative); WBC Urine Automated 0 /hpf (0-5)
[2018-05-01 19:56] LABS: Amphetamines+Metham, Urine Neg (Neg); Barbiturates, Urine Neg (Neg); Benzodiazepine, Urine Neg (Neg); Cocaine, Urine Neg (Neg); MDMA (Ecstacy), Urine Neg (Neg); Methadone, Urine Neg (Neg); Opiate, Urine Neg (Neg); Phencyclidine, Urine Neg (Neg)
[2018-05-01] MEDS ORDERED: ENOXAPARIN INJ 40 MG/0.4 ML SYR SQ SCH (21:00)
[2018-05-01] MEDS: DULOXETINE HCL 20 MG CAP PO SCH (21:21)
[2018-05-01] MEDS: cefTRIAXone SODIUM 2,000 MG in DEXTROSE 5% 50 ML IV SCH (21:27)
[2018-05-01] MEDS: DOXYCYCLINE HYCLATE 100 MG CAP PO SCH (21:44)
[2018-05-02 00:22] LABS: Rapid Plasma Reagin Nonreactive (Nonreactive)
[2018-05-02 07:34] LABS: Hematocrit (blood only) 44.2 % (37-47); Hemoglobin 15.9 g/dL (12.0-16.0); Mean Corpuscular Volume 88.8 fL (80-100); Mean Platelet Volume 9.8 fL (7.4-10.4); Platelet Count 250 K/uL (130-400); RDW Coefficient of Variation 12.9 % (11.5-14.5); RDW Standard Deviation 41.7 fL (36.4-46.3); Red Blood Count 4.98 M/uL (4.2-5.4); White Blood Count 5.96 K/uL (4.8-10.8)
[2018-05-02 07:58] LABS: Estimated Average Glucose 103 mg/dl
[2018-05-02 08:05] LABS: BUN Creatinine Ratio 16.6 (10-20); Calcium 8.5 mg/dl (8.5-10.1); Est GFR (African American) 89.4; Est GFR (Non-African American) 77.1; Potassium 3.7 mmol/L (3.5-5.1)
[2018-05-02] MEDS: DOXYCYCLINE HYCLATE 100 MG CAP PO SCH (08:29)
[2018-05-02] MEDS: DULOXETINE HCL 20 MG CAP PO SCH (08:29)
[2018-05-02] MEDS: cefTRIAXone SODIUM 2,000 MG in DEXTROSE 5% 50 ML IV SCH (08:31)
[2018-05-02] MEDS: ACETAMINOPHEN 325 MG TAB PO PRN (08:33)
--- NOTE | 2018-05-02 09:43 | Neurology Consultation ---
Date of Consultation May 02, 2018 Assessment & Plan (1) TGA (transient global amnesia): This patient's clinical presentation is most consistent with transient global amnesia. The episode has resolved although she will have some residual amnesia for the events occurring yesterday morning. The underlying pathophysiology of TGA is not really known although transient dysfunction of the medial temporal lobes (hippocampi) likely occurs in individuals with this clinical presentation. The episodes are not felt to be related to vascular insufficiency, seizure phenomena, or migraine. Her brain MRI was negative for any evidence of acute or subacute infarct. She does not have a history of seizure disorder and did not exhibit any seizure-like activity. Whether or not this patient's history of migraine factors into her presentation is unknown. She has not been experiencing a migrainous headache recently. There is no specific treatment for transient global amnesia. Episodes tend to be isolated events with a low likelihood of recurrence. Both the patient and her were given additional counseling regarding TGA. Whether or not the identified carotid artery narrowings and associated right ICA aneurysm are related to her TGA cannot be determined. (2) Carotid artery narrowings: Multifocal narrowing of the bilateral internal carotid arteries on CT angiography of the neck. Differential diagnosis includes fibromuscular dysplasia, atherosclerosis, and vasculitis. I would recommend obtaining some lab screening for vasculitis including a sedimentation rate, CRP, CAROLINE screen, complement levels, and ANCA screen. If any of these tests are positive would consider obtaining a rheumatological assessment. Would also consider obtaining additional screening for fibromuscular dysplasia. Consider obtaining a renal artery ultrasound and/or an MRA of the renal arteries to look for evidence of FMD elsewhere. I did recommend that she discontinue use of Vyvanse, although she has not used this medication in about 2 months. 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 This patient will need a neurosurgical evaluation for this issue at [facility]. I explained to both the patient and her that she will likely need a conventional arteriogram for further assessment of this issue. Depending on the findings, the aneurysm could potentially be treated surgically with clipping or possibly coiling. This assessment can be arranged as an outpatient but should be completed within the next few weeks if possible. As above, I recommended that she discontinue her use of Vyvanse. History of Present Illness Reason for Consultation: amnesia Requesting Physician: Mine Friedman MD Attending Physician: Mine Friedman MD History of Present Illness The patient is a 52-year old female who presented with change in mental status noted about 1 hour prior to arrival yesterday morning. The patient's indicates that he found her in the kitchen, staring at the cabinets at that time. She seemed to be visibly confused and was repeating the same questions. The patient has no specific memory for the onset of her symptoms but does recall some events from yesterday afternoon after she was admitted to the hospital. She was repeating asked where she was while in the emergency department but was able to recognize family members and otherwise seem to interact appropriately. Currently, the patient feels well. Her is also at bedside. She complains of a mild headache and relays a history of intermittent migraine, perhaps 1 or 2 episodes per month for which she has a prescription for rizatriptan. She does not recall having a significant migrainous headache prior to symptom onset. She also complains of some mild anterior neck discomfort. No associated difficulty with swallowing. No pain with chewing. She denies any significant pain in the muscles or joints. No episodes of vision loss or diplopia. She does recall having an unusual rash appear on the dorsum of her right foot sometime within the past week or 2. She also recalls experiencing some associated paresthesias of the toes and hands. Past medical history notable for depression with anxiety for which she is taking duloxetine. She reports that she has a prescription for Vyvanse which she uses intermittently for an eating disorder. She reports that she takes this medication to reduce her appetite but has not used it in about 2 months. She does not have a known history of hypertension, hyperlipidemia, or cardiovascular disease although she was modestly hypertensive in the emergency department. Allergies Allergy/AdvReac Type Severity Reaction Status Date / Time mivacurium Allergy Unknown DIFF Unverified 05/01/18 08:26 BREATHING Penicillins Allergy Unknown SOB AND Verified 05/01/18 08:26 THROAT EDEMA Home Medications Home Medications Medication Instructions Recorded Confirmed Type duloxetine 20 mg PO BID 05/01/18 05/01/18 History etonogestrel-ethinyl estradiol 1 dose VAGINAL DAILY 05/01/18 05/01/18 History [NuvaRing] multivitamin 1 cap PO DAILY 05/01/18 05/01/18 History Patient History Medical History Anxiety and depression Migraine TMJ (temporomandibular joint disorder) Surgical History No pertinent past surgical history Family History Mother CLL (chronic lymphocytic leukemia) Father Hypertension Social History Current Living Situation: Spouse current occupational status: employed Other Information That Helps Us Care for You: No Feels Safe at Home: Yes Safety Concerns: Feels Safe At This Time Smoking Status: Never smoker Do You Dip or Chew Tobacco: No Second Hand Exposure: No Tobacco Cessation Education Requested by Patient: No Hx Alcohol Use: No Hx Substance Use: No Beliefs That Will Affect Care: None Preferred Language: Thai Communication Ability: Effective Communication Ability Comment: short term memory problems, forgot incident, forgot this assessment 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 Review of Systems Constitutional: no fever, no chills and no body aches Eyes: no blind spots and no diplopia Ear, Nose, Mouth, Throat: no ear pain and no hearing loss Respiratory: no cough and no dyspnea Cardiovascular: no chest pain and no palpitations Gastrointestinal: no abdominal pain and no vomiting Genitourinary (Female): no dysuria and no urinary incontinence Musculoskeletal: no joint pain, no myalgia and no body aches Integumentary: as per Subjective / HPI; no lesions and no sores Neurologic: as per Subjective / HPI Psychiatric: as per Subjective / HPI; no depression and no anxiety Hematologic / Lymphatic: no easy bleeding, no easy bruising and no lymphadenopathy Physical Exam 2 Vital Signs (Past 24 Hours): Last Vital Signs Temp 36.8 C 05/02/18 03:05 Pulse 86 05/02/18 03:05 Resp 16 05/02/18 03:05 BP 156/92 H 05/02/18 03:05 Pulse Ox 96 05/02/18 03:05 Physical Exam: The patient is a well-developed, well-nourished female. She is lying comfortably in bed in no acute distress. She is alert and fully oriented. Recent and remote memory intact. Attention and concentration normal. Patient exhibits a normal spontaneous speech pattern as well as an age- appropriate fund of knowledge. Normal vocabulary. Visual perea full to confrontation. Visual acuity normal. Pupils equal round reactive to light and accommodation. Eye movements normal. Facial sensation intact. There is normal facial strength and symmetry. Hearing intact bilaterally. Palate elevates to midline. Shoulder shrug intact. Tongue protrudes to midline. Sensation intact to all modalities in all 4 limbs. Deep tendon reflexes intact and symmetrical for the arms and legs bilaterally. Plantar responses downgoing bilaterally. There is no dysdiadochokinesia or dysmetria finger to nose or heel to ornelas bilaterally. Ophthalmoscopic examination reveals normal-appearing optic disks and posterior segments. No papilledema or hemorrhages. Carotid pulses normal bilaterally, no bruits to auscultation. Gait and station normal. Patient exhibits normal muscle strength and tone for all 4 limbs. No atrophy. No abnormal movements observed. Results & Data Laboratory Results Recently completed labs reviewed. CBC normal. Conference of metabolic panel normal. Urine tox screen negative. Lyme IgM screen positive. Hemoglobin A1c normal. Total cholesterol 208. Vitamin B12 level normal. TSH normal. Diagnostic Findings CT of the head normal. MRI of the brain without contrast normal. No evidence for acute or subacute infarct. No evidence for demyelinating disease. There is minimal scattered foci of increased T2/FLAIR signal suggestive of mild microvascular change. Brain parenchyma otherwise appears normal. There is no atrophy. MR angiography of the head and neck revealed multifocal irregularities potentially suggestive of atherosclerotic change. The study was inconclusive, however, and follow-up CT angiography was recommended. A CT angiogram of the head was unremarkable. No evidence for intracranial aneurysm, vessel occlusion, or other abnormalities. A CT angiogram of the neck revealed bilateral multifocal narrowing of the internal carotid arteries as well as a probable 7 mm focal saccular aneurysm arising from the distal right internal carotid artery at the C1 level. The overall appearance of this patient's cervical CT angiogram is potentially suggestive of fibromuscular dysplasia or vasculitis. I reviewed the images as well as the radiologist interpretation of the above tests. Electrocardiogram revealed a normal sinus rhythm, 98 bpm. A transthoracic echocardiogram was unremarkable. No evidence of PFO.
[2018-05-02] MEDS ORDERED: RIZATRIPTAN BENZOATE 10 MG TAB PO STA (11:14)
--- NOTE | 2018-05-02 16:39 | Ultrasound Report ---
US duplex renal artery HISTORY: 52 years-old Female evaluate for fibromuscular dysplasia hypertension. Screening exam. COMPARISON: CTA had and neck 05/01/2018 TECHNIQUE: Multiple real-time sonographic images of the bilateral renal arteries were obtained assess ing grayscale appearance, color and spectral flow FINDINGS: Aorta measures 2.0 cm proximally and demonstrates normal plug flow with peak systolic velocities jamar uring up to 75 m/s. Right kidney measures 9.8 cm in length. Patent renal vein. There are no elevated peak systolic veloci ties identified about the right kidney to suggest renal arterial stenosis. Peak systolic velocities m easuring up to 134 cm/s about the proximal aspect of the right renal artery. The left kidney measures 9.6 cm in length. Patent renal vein. There are no elevated peak systolic josh ocities identified about the left kidney to suggest renal arterial stenosis. Peak systolic velocities measure up to 72 cm/s about the mid aspect of the left renal artery. IMPRESSION: No evidence of renal arterial stenosis. The above report was generated using voice recognition software. It may contain grammatical, syntax o r spelling errors. Electronically signed by: iZa Mina M.D. 05/02/2018 4:38 PM
--- NOTE | 2018-05-02 17:24 | Discharge Summary ---
Date of Service May 02, 2018 Admission HPI Per Admitting Provider Mrs. Rice is a 52 y/o female with history of anxiety/depression who presented to the ED with confusion. History was obtained from her who was present at bedside. He states patient was staring "blankly" into the kitchen cabinets this morning when he found her downstairs around 6 am. She does not remember anything this morning and repeats questions frequently, including "Where am I?". Prior to episode this morning, she denies chest pain, SOB, headache, visual changes, LE edema or pain at home. Denies nausea or vomiting, diarrhea or constipation, abdominal pain, dysuria or urinary retention. Pt. has previously taken anti-depressants but does not take any treatment currently. She uses the Nuva-ring at home but denies other medications ; her family confirmed that she does not take other medications. Denies recent illnesses or sick contacts prior to admission. Work up in the ED, including CT head, brain MRI and CXR, were all negative. U/a and urine drug screen is pending. Will admit to observation status for further evaluation and neurology consult. Principal Diagnosis Transient global amnesia Discharge Exam Constitutional WD/WN, vitals as above average body habitus, cooperative and comfortable; no acute distress Eyes + anicteric sclerae and EOM intact bilaterally; no scleral abnormality ENMT external ear and nose normal, oropharynx normal Neck normal visual inspection Respiratory normal respiratory effort, lungs clear to auscultation Cardiovascular RRR, no murmur, no edema Extremities: no calf tenderness and no edema Gastrointestinal (Abdomen) normal bowel sounds, soft, nontender, no hepatosplenomegaly Musculoskeletal Head/Neck/Chest: normocephalic, head atraumatic and neck supple Extremities: extremities normal to inspection Skin no rashes, warm and dry Neurologic normal touch/pain/proprioception, CN's II-XI intact bilaterally, moves all extremities and awake; no focal motor deficits and not confused Psychiatric A+Ox3, euthymic affect Speech: normal rate/rhythm/volume of speech Discharge Data Allergies Allergy/AdvReac Type Severity Reaction Status Date / Time mivacurium Allergy Unknown DIFF Unverified 05/01/18 08:26 BREATHING Penicillins Allergy Unknown SOB AND Verified 05/01/18 08:26 THROAT EDEMA Consultations 05/01/18 09:44 ED Decision to Admit Stat 05/01/18 12:27 Consult Case Management - Discharge Planning Routine Consult Neurology Routine 05/02/18 11:35 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 hypertensive encephalopathy vs. TIA/CVA vs. infection. MRI brain w/o contrast and CT head without contrast negative for stroke; CXR and UA negative for infection; urine drug screen negative Neurology consulted, and in view of all lab work and imaging, agree TGA most likely dx IgM positive results on the Lyme screening test Prelim positive IgM, negative IgG - sent for confirmatory testing (pending on discharge) - Patient discharged with 2 week supply of doxycycline 100mg BID - Follow up with PCP to determine if medication can be discontinued versus need for extension based on final results. Bilateral internal carotid artery abnormalities CTA Neck report: Multifocal luminal irregularity and mild narrowing involves the bilateral internal carotid arteries. These findings are concerning for fibromuscular dysplasia or other nonspecific vasculitis. Inflammatory markers negative. Renal artery duplex ultra sound was also done, and showed no evidence of renal arterial stenosis. - IF CAROLINE, ANCA, and complement levels abnormal (pending on discharge), may warrant referral to rheumatology - Consider need for further work up of FMD with an MRA of the renal arteries Saccular aneurysm CTA Neck report: There is a focal saccular aneurysm about the distal cervical segment right ICA at the level of C1 which measures up to 7 mm in greatest dimension. This finding warrants close follow up. - Consult placed for neurosurgery at [place] for further evaluation and to discuss management options. Patient will be called with appointment details once made. Dyslipidemia Cholesterol elevated. - In view of evidence of atherosclerotic changes in vasculature on imaging, patient started on atorvastatin 20mg Hypertension No documented h/o HTN in past; but SBP ranged 150-170s through out admission. Potentially situational, as such no antihypertensives started on discharge - Follow up with PCP for BP measurements, and initiating RX if warranted History of migraine No evidence of acute migraine. - Rizatrpitin PRN Anxiety and depression - Continue duloxetine - Discontinue Vyvanse, per neurology control - Continue Nuvaring (2) Carotid aneurysm, right: (3) Carotid artery narrowings: (4) Hypertension: (5) control: (6) Anxiety and depression: (7) History of migraine: (8) DVT prophylaxis: Total Time Total Time Spent Total Time Spent (In Minutes): 30 Total Time Includes: Examination of the Patient, Discharge Planning, Medication Reconciliation and Communication With Other Providers Discharge Plan Discharge Items Patient Disposition: Home - Self-Care Reason For Visit: ENCEPHALOPATHY Discharge Diagnosis: Transient global amnesia Condition: Good Discharge Goals: Diagnostic testing, Learn about illness and Therapeutic intervention Activity: Resume your previous activity Non-emergency contact: Primary Care Provider and Neurologist Call non-emergency contact if: your symptoms worsen Follow-up/Referrals: Mariely Thornton [Other] Diet: Regular Addtl Provider Instructions: You were admitted with acute onset confusion and work up revealed some findings (discussed further below), but the most likely diagnosis for your symptoms is transient global amnesia. This was discussed with you in depth by the neurologist. The mechanism is not well understood, but your case is what we refer to as "textbook." In our attempts to rule out other causes of confusion, there were some other findings/topics of discussion: 1) IgM positive results on the Lyme screening test The test is being sent for further confirmatory testing, but in the interim, you will be discharged on a course of doxycycline to be taken 1 tab in the morning and one in the evening. We have prescribed a 2 week course for now. Follow up with your PCP, Mariely Thornton in 7-10 days, she can help you to determine if the course can be discontinued or needs to be extended based on final results. 2) Bilateral internal carotid artery abnormalities These findings were concerning for fibromuscular dysplasia or other perhaps a nonspecific vasculitis. Inflammatory markers were ordered to make sure there was no active vasculitis, and they came back within normal ranges, which was reassuring. However, more extensive labs including CAROLINE, ANCA, and complement levels were also send out. They may take a week to result, so your PCP can discuss these at your follow up appointment, and if there are any abnormalities , a referral to a graduate teaching associate may be warranted. Renal artery duplex ultra sound was also done, and showed no evidence of renal arterial stenosis. You may discuss the need for further work up with an MRA of the renal arteries to look for evidence of FMD elsewhere with your PCP 3) Focal saccular aneurysm ~7mm at the right internal carotid artery This finding warrants close follow up. As discussed, a consult has been placed for you to meet with a neurosurgeon at [place] for further evaluation and to discuss management options with you in greater detail. Our staff will help to coordinate the appointment. If you do not hear about an appointment time by 05/05, please call us to verify. 4) Elevated cholesterol. It is borderline at this time, but given evidence of atherosclerotic changes in your vasculature, we recommend starting a statin. We have prescribed atorvastatin 20mg to be taken daily, to offer cardiovascular and cerebrovascular protection. We recommend continuing this, with a lipid panel recheck in 3 months. Sometimes lifestyle modifications can also be sufficient to improve your cholesterol. This can be discussed further with your PCP. 5) Elevated blood pressure While in the hospital your systolic blood pressures have remained in the 150s and 160s. This might be situational, as such, no medication has been started at this time. However, this also warrants follow up and further discussion with your PCP. If it remains consistently elevated, blood pressure medications may be needed to again provide cardiovascular and cerebrovascular protection. 6) Vyvanse As discussed with neurology, it is advised to discontinue this medication. Continue all other medications as previous. Prescriptions: New atorvastatin 20 mg tablet 20 mg PO DAILY Qty: 30 RF: 0 doxycycline hyclate 100 mg Capsule 100 mg PO BID Qty: 14 RF: 0 Continue multivitamin Capsule 1 cap PO DAILY RF: 0 etonogestrel-ethinyl estradiol 0.12-0.015 mg/24 hr ring 1 dose Vaginal DAILY RF: 0 duloxetine 20 mg capsule,delayed release(DR/EC) 20 mg PO BID RF: 0 Stand-Alone Forms: [facility] Discharge Orders: Discharge Order (Routine); Ordered 05/02/18 Ordered By: Joseline Bennett Admission Data Admit Date/Time: 05/01/18 10:59 Attending Provider: Mine Friedman Admit Provider: Mine Friedman Primary Care Provider: PCP,NO Other Providers: Taj Bañuelos ; Rahul Taylor Service: Telemetry Other Interventions: Discharge Summary Assessment (RN) Last Done: 05/02/18 17:56 Pending Studies at Discharge: Yes Studies:: B1, CAROLINE, ANCA, complement levels DC Date/Time DO NOT enter until pt leaves facility: 05/02/18 18:57 Supervising Physician Co-Signing Physician Notes Resident Physician Supervision Note: I independently interviewed and examined the patient and verified the sutton history and physical, reviewed labs and image studies, discussed the case with the resident Dr. Bennett and agree with the findings and care plan. Time spent in discharge 35 min Resident Activity Tracking Resident Involvement: Resident Care Provided Care Provided: Adult Hospital Medicine
[2018-05-05 13:30] LABS: 18KDIGG Band NONREACTIVE (NONREACTIVE); 23KDIGG Band NONREACTIVE (NONREACTIVE); 23KDIGM Band NONREACTIVE (NONREACTIVE); 28KDIGG Band NONREACTIVE (NONREACTIVE); 30KDIGG Band NONREACTIVE (NONREACTIVE); 39KDIGG Band NONREACTIVE (NONREACTIVE); 39KDIGM Band NONREACTIVE (NONREACTIVE); 41KDIGG Band NONREACTIVE (NONREACTIVE); 41KDIGM Band NONREACTIVE (NONREACTIVE); 45KDIGG Band NONREACTIVE (NONREACTIVE); 58KDIGG Band NONREACTIVE (NONREACTIVE); 66KDIGG Band NONREACTIVE (NONREACTIVE); 93KDIGG Band NONREACTIVE (NONREACTIVE); Lyme Antibodies, WB IgG NEGATIVE (NEGATIVE); Lyme Antibodies, WB IgM NEGATIVE (NEGATIVE)
[2018-05-06 11:50] LABS: Complement C3 138 MG/DL (83-193)
[2018-05-11 10:04] LABS: Anti Nuclear Antibody Screen POSITIVE (NEGATIVE); Myeloperoxidase Ab <1.0 AI (<1.0)
[2018-05-11 11:35] LABS: ANA Pattern NUCLEOLAR
== END 2018-05-02 18:57 | disposition home or self-care (01) ==
LOC: ED 07:05 → 2S 07:05